=== PATIENT | male | born 1970 | race Caucasian/White ===

== ENCOUNTER 2019-06-26 11:48 | Day surgery (SDC) | payer OTHER ==
[~2019-06-26] VITALS: Ht 180.3 cm; Wt 96.6 kg
[~2019-06-26 11:48] MED LIST: DOXY100 PO; [UNRECOGNIZED DRUG - REMARK]
[2019-06-26] MEDS ORDERED: ROSU10TA (12:14)
== END 2019-06-26 13:49 | disposition home or self-care (01) ==
LOC: ORSCSDS 11:48
PROVIDERS: Internal Medicine Gastroenterology
PROC: 0DBN8ZX Excision of Sigmoid Colon, Via Natural or Artificial Opening Endoscopic, Diagnostic (ICD-10-PCS; principal; 2019-06-26 13:15)
DX: Z12.11 Encounter for screening for malignant neoplasm of colon (principal); D12.5 Benign neoplasm of sigmoid colon; Z79.899 Other long term (current) drug therapy
CPT/HCPCS: 88305; J2704; J7120

== ENCOUNTER → 2020-12-25 | Outpatient (CLI) | payer OTHER ==
[~2020-12-25] MED LIST changes: +ROSU10TA
== END | disposition home or self-care (01) ==
LOC: LAB SHORT 10:58 → LAB 10:58
DX: D48.5 Neoplasm of uncertain behavior of skin (principal); D23.72 Other benign neoplasm of skin of left lower limb, including hip
CPT/HCPCS: 88305

== ENCOUNTER 2023-11-30 13:08 | Day surgery (SDC) | payer OTHER ==
[~2023-11-30] VITALS: Ht 180.3 cm; Wt 99.6 kg
[~2023-11-30 13:08] MED LIST changes: +Lactated Ringer's 1,000 ML IV ONE; +propofoL 50 ML IV ONE
[2023-11-30] MEDS ORDERED: ZOCOR20 MG (13:20)
[2023-11-30] MEDS ORDERED: Lactated Ringer's 1,000 ML IV ONE (13:35)
[2023-11-30 16:14] VITALS: BP 110/68
== END 2023-11-30 16:25 | disposition home or self-care (01) ==
LOC: ORSCSDS 13:08
PROVIDERS: Internal Medicine Gastroenterology
PROC: 0DJD8ZZ Inspection of Lower Intestinal Tract, Via Natural or Artificial Opening Endoscopic (ICD-10-PCS; principal; 2023-11-30 14:15)
DX: Z12.11 Encounter for screening for malignant neoplasm of colon (principal); Z86.010 Personal history of colon polyps; E78.5 Hyperlipidemia, unspecified
CPT/HCPCS: J2704; J7120